=== PATIENT | female | born 1985 | race Caucasian/White ===

== ENCOUNTER 2017-12-01 12:32 | Day surgery (SDC) | payer OTHER ==
[2017-12-01 13:03] VITALS: BP 136/85; TEMP 98.6; BMI 33.3
[2017-12-01 13:45] LABS: #Basophils 0.1 thou/uL (0.0-0.2); #Eosinphils 0.1 thou/uL (0.0-0.7); #Lymphocytes 2.4 thou/uL (1.20-3.40); #Monocytes 0.6 thou/uL (0.11-0.59); #Neutrophils 6.9 thou/uL (1.40-6.50); %Basophils 1.2 % (0.0-1.0); %Lymphocytes 23.5 % (21.0-51.0); %Neutrophils 68.3 % (42.0-75.0); Hemoglobin 13.4 g/dL (12.0-16.0); Mean Corpuscular HGB CONC 35.4 g/dL (32.0-36.0); Mean Corpuscular Hemoglobin 31.6 pg (27.0-31.0); Mean Corpuscular Volume 89.2 fL (78.0-98.0); Mean Platelet Volume 7.4 fL (7.4-10.4); Platelet Count 133 thou/uL (130-400); RBC Distribution Width 12.4 % (11.5-14.5); Red Blood Cell (RBC) Count 4.26 mill/uL (4.20-5.40)
[2017-12-01 14:10] LABS: ALT (SGPT) 16 U/L (8-55); AST (SGOT) 20 U/L (5-34); Albumin 3.5 g/dL (3.5-5.0); Alkaline Phosphatase 253 U/L (40-150); Anion Gap 14 mmol/L (10-20); BUN (Urea Nitrogen) 8 mg/dL (7.0-18.7); Bilirubin, Total 0.5 mg/dL (0.2-1.2); Calc. Creatinine Clearance 178 mL/min (70-130); Carbon Dioxide 21 mmol/L (22-29); Chloride 106 mmol/L (98-107); Estimated GFR-MDRD Greater than 90; Globulin 2.6 g/dL (2.4-3.5); Glucose 80 mg/dL (70-105); Potassium 3.8 mmol/L (3.5-5.1); Protein, Total 6.1 g/dL (6.0-8.3); Sodium 137 mmol/L (136-145)
== END 2017-12-01 16:00 | disposition home or self-care (01) ==
LOC: L&D/OP 12:32
PROVIDERS: ATTEND Student in an Organized Health Care Education/Training Program
DX: O99.89 Other specified diseases and conditions complicating pregnancy, childbirth and the puerperium (principal); R42 Dizziness and giddiness
CPT/HCPCS: 36415; 80053; 82570; 84156; 85025; 99283

== ENCOUNTER 2018-01-03 16:27 | Inpatient (IN) | payer OTHER ==
[2018-01-03 16:53] VITALS: BMI 35.6
--- NOTE | 2018-01-03 17:09 | PDOC.LDHP ---
Labor and Delivery H&P Chief complaint: loss of fluid HPI: Patient of Dr Henry Location: Triage CC: LOF x [phone] this am In brief, this is a 32 yo Sab1 at 39 weeks 4 days here for LOF, but no CTX. No VB, no HAs, good FM. No recent trauama. HX MVP with PVCs requiring pacemaker years ago, but is stable now, and the device was removed years ago. Review of Systems: as per HPI Current gestational age (weeks): 39 (4 days) Dating criteria: last menstrual period Grav: 2 Para: 0 OB History Details: Sab1 Current complications: none Abnormal US findings: No Current medications: pre- vitamins Previous surgical history: other (Childhood hernia, pacemaker during teen years) Allergies/Adverse Reactions: Allergies Allergy/AdvReac Type Severity Reaction Status Date / Time No Known Allergies Allergy Verified 01/03/18 16:50 Social history: none - Physical Exam Vital signs reviewed and normal: yes (135/89 98.8 97% 113) General: NAD Heart: RRR Lungs: CTAB Abdomen: gravid (S=D EFW around 6-7#) Extremeties: no edema FHT: category 1 [place] contractions every: 2 contractions noted in 15 minutes - Assessment Term patient, with suspected ROM - Plan Plan: observation in L&D (I will perform SSE and upfdate record once done. also to be collected. If evidence of ROM, I will notify her provider for admit. Check GBS status)
--- NOTE | 2018-01-03 17:30 | PDOC.EVN ---
Event Note - Event Note Event Note: Sterile Spec Exam: Clear fluid noted at posterior fourchette of vagina. Pooling out of vagina after exam. DX: PROM. Cervix seen...visually 1cm (which is what she was in office last check by her report). PLAN: I discussed PROM with her and her with Nataly in room. I discussed cytotec, pitocin as options. She would like to see if contractions start naturally before using meds. I discussed ACOG PROM management and since GBS negative, may observe for a SET/DETERMINED amount of time, if her OBGYN provider agrees. She has opted to await labor for 6 hours if possible. Info relayed to Dr Henry.
[2018-01-03] MEDS ORDERED: Ondansetron HCl/PF 4 MG/2 ML Vial IVP PRN (17:31)
[2018-01-03] MEDS ORDERED: Lidocaine 1% (PF) 30 ML VIAL SC PRN (17:31)
[2018-01-03] MEDS ORDERED: Promethazine HCl 25 MG/ML VIAL IM PRN (17:31)
[2018-01-03] MEDS ORDERED: HYDROcodone/Acetaminophen 5/325 mg Tablet PO PRN ×2 (17:31)
[2018-01-03] MEDS ORDERED: Ibuprofen 800 MG TAB PO PRN (17:31)
[2018-01-03] MEDS: Lactated Ringer's 1,000 ML IV SCH ×2 (17:45→19:50)
[2018-01-03 17:50] LABS: Hemoglobin 13.1 g/dL (12.0-16.0); Mean Corpuscular HGB CONC 35.7 g/dL (32.0-36.0); Mean Corpuscular Hemoglobin 31.5 pg (27.0-31.0); Mean Corpuscular Volume 88.3 fL (78.0-98.0); Mean Platelet Volume 7.8 fL (7.4-10.4); Platelet Count 138 thou/uL (130-400); RBC Distribution Width 12.2 % (11.5-14.5); Red Blood Cell (RBC) Count 4.15 mill/uL (4.20-5.40); White Blood Cell (WBC) Count 9.9 thou/uL (4.8-10.8)
[2018-01-03 17:50] LABS: Amnisure Test RUPTURE DETECTED (No Rupture)
[2018-01-03 17:51] LABS: Amnisure Internal Control QC ACCEPTABLE (ACCEPTABLE)
[2018-01-03 18:31] LABS: HBSAg Index 0.15 S/CO (0-0.99); HIV (1/2) Antibody/Antigen Non-Reactive (NonReactive); HIV 1/2 INDEX 0.11 S/CO (<1.00); Hep B Surf Ag Non-Reactive S/CO (NonReactive); Syphilis Antibody Nonreactive (Nonreactive); Syphilis Antibody Index 0.03 S/CO (<1.00 Non-Reactive)
[2018-01-03 22:06] LABS: ALT (SGPT) 16 U/L (8-55); AST (SGOT) 21 U/L (5-34); Albumin 3.4 g/dL (3.5-5.0); Alkaline Phosphatase 357 U/L (40-150); Anion Gap 14 mmol/L (10-20); BUN (Urea Nitrogen) 10 mg/dL (7.0-18.7); Bilirubin, Total 0.5 mg/dL (0.2-1.2); Calc. Creatinine Clearance 184 mL/min (70-130); Calcium 9.3 mg/dL (7.8-10.44); Carbon Dioxide 20 mmol/L (22-29); Chloride 107 mmol/L (98-107); Estimated GFR-MDRD Greater than 90; Globulin 2.6 g/dL (2.4-3.5); Glucose 80 mg/dL (70-105); Potassium 3.8 mmol/L (3.5-5.1); Sodium 137 mmol/L (136-145)
[2018-01-03] MEDS: Misoprostol 100 MCG TAB VAG SCH (23:25)
[2018-01-04] MEDS: Misoprostol 100 MCG TAB VAG SCH ×3 (02:25→09:37)
[2018-01-04] MEDS: Lactated Ringer's 1,000 ML IV SCH ×3 (04:05→17:40)
--- NOTE | 2018-01-04 07:33 | PDOC.LDPN ---
Labor & Delivery Progress Note - Subjective Subjective: painful contractions - Objective Vital signs reviewed and normal: yes General: NAD Uterine fundus: non tender Dilation: 3 Effacement: 75% Station: -2 (by RN) FHT: category 1 [place] contractions every: 2-3min Plan: pitocin for augmentation -: No e/o chorio, limit SVE due to ROM >24hr, neg GBS. FHT reassuring. pt considering epidural. Start pitocin.
[2018-01-04] MEDS ORDERED: DISCONTINUE ALL PREVIOUS NARCOTICS FS SCH (07:45)
[2018-01-04] MEDS ORDERED: NS w/ Oxytocin 10 units 500 ML IV SCH (07:45)
[2018-01-04] MEDS: Bupivacaine 0.5% 20 ML, fentaNYL Citrate/PF 400 MCG in Sodium Chloride 0.9% 72 ML EPIDURAL SCH ×3 (09:35→22:10)
[2018-01-04] MEDS ORDERED: Ondansetron HCl/PF 4 MG/2 ML Vial IVP PRN (09:38)
[2018-01-04] MEDS ORDERED: diphenhydrAMINE 50 MG/ML VIAL IVP PRN (09:38)
[2018-01-04] MEDS ORDERED: ePHEDrine/0.9% NaCl/PF SYRINGE 50 mg/10 ml SLOW IVP PRN (09:38)
[2018-01-04] MEDS ORDERED: Promethazine HCl 25 MG/ML VIAL IM PRN (09:38)
[2018-01-04] MEDS ORDERED: Eucerin (Mineral Oil/Petrolatum,White) 30 gm Jar TOP PRN (09:38)
[2018-01-04] MEDS ORDERED: Naloxone HCl 0.4 mg/ml Vial IVP PRN ×2 (09:38)
[2018-01-04] MEDS ORDERED: Lactated Ringer's 500 ML IV PRN (09:38)
[2018-01-04] MEDS ORDERED: Acetaminophen 325 MG TAB PO PRN (09:38)
[2018-01-04] MEDS ORDERED: Communication Order-Pharmacy FS SCH (09:45)
[2018-01-04] MEDS ORDERED: fentaNYL Citrate/PF 400 MCG, Bupivacaine 0.5% 20 ML in Sodium Chloride 0.9% 72 ML EPIDURAL SCH (09:45)
[2018-01-04] MEDS: NS / Oxytocin 40 units/1000ml 1,000 ML IV PRN (23:50)
[2018-01-04] MEDS ORDERED: Misoprostol 200 MCG TAB ONE (23:57)
--- NOTE | 2018-01-05 00:08 | PDOC.OPDEL ---
OB Operative/Delivery Note Delivery Dr/Surgeon: Carl Assist: n/a Pre-Delivery Diagnosis: ruptured membrane Procedure/Post Delivery Dx: spontaneous vaginal delivery Weeks gestation: 39 Anesthesia: epidural - Findings A Sex: male - 1 min: 8 - 5 min: 9 - Additional Findings/Plan Placenta delivered: spontaneous Repaired Obstetrical Laceration: none Estimated blood loss: normal, qbl pending Compilations/Other Findings: body cord x 1, slight uterine atony improved with pitocin and fundal massage, cytotec 800mcg given pr prophylactically Post delivery plan: routine recovery
[2018-01-05] MEDS: NS / Oxytocin 40 units/1000ml 1,000 ML IV PRN (01:14)
[2018-01-05] MEDS ORDERED: Bisacodyl 10 MG SUPP PR PRN (03:10)
[2018-01-05] MEDS ORDERED: Ondansetron HCl/PF 4 MG/2 ML Vial IVP PRN (03:10)
[2018-01-05] MEDS ORDERED: Milk Of Magnesia 30 ML UDCUP PO PRN (03:10)
[2018-01-05] MEDS ORDERED: diphenhydrAMINE 25 MG CAP PO PRN (03:10)
[2018-01-05] MEDS ORDERED: Preparation H Ointment 28 GM TUBE PR PRN (03:10)
[2018-01-05] MEDS ORDERED: Lanolin Ointment 7 GM TUBE TOP PRN (03:10)
[2018-01-05] MEDS ORDERED: HYDROcodone/Acetaminophen 5/325 mg Tablet PO PRN ×2 (03:10)
[2018-01-05] MEDS ORDERED: NS / Oxytocin 40 units/1000ml 1,000 ML IV SCH (03:10)
[2018-01-05] MEDS ORDERED: Benzocaine/Menthol 20-0.5% 60 ML CAN TOP PRN (03:10)
[2018-01-05] MEDS ORDERED: Adacel (T-DAP) 0.5 ML VIAL IM ONE (04:00)
[2018-01-05] MEDS: Ibuprofen 800 MG TAB PO SCH ×3 (05:27→21:04)
--- NOTE | 2018-01-05 08:28 | PDOC.PP ---
Post Progress Note Post Day #: 1 PO intake tolerated: yes Flatus: yes Ambulation: yes Vital Signs (12 hours) Temp Pulse Resp BP BP 01/05/18 05:15 97.9 F 96 18 128/80 01/05/18 04:10 98.0 F 96 18 133/86 01/05/18 03:00 98.2 F 93 20 126/84 Weight Weight 201 lb - Physical Examination General: NAD Respiratory: non-labored breathing Abdominal: no distention, appropriately TTP Neurological: no gross focal deficits Psychiatric: normal affect Result Diagrams: 01/03/18 17:41 01/03/18 17:31 Additional Labs: Post Labs Blood Type O POSITIVE 01/03/18 17:41 Hep Bs Antigen Non-Reactive S/CO (NonReactive) 01/03/18 17:41 - Assessment/Plan PPD1 s/p TSVD VSSAF Doing well, DTV, lochia appropriate Rh pos Rimm Cont PP care, home tomorrow
[2018-01-05] MEDS: Ferrous Sulfate 325 MG TAB PO SCH ×2 (09:51→17:01)
[2018-01-05] MEDS: Docusate Calcium (SURFAK) 240 MG CAP PO SCH ×2 (09:53→21:04)
[2018-01-05] MEDS: Prenatal Vitamin 1 TAB PO SCH (09:53)
[2018-01-05] MEDS ORDERED: Bupivacaine 0.25% HCL 30 ML VIAL ONE (11:18)
[2018-01-06] MEDS: Ibuprofen 800 MG TAB PO SCH ×2 (05:25→14:17)
--- NOTE | 2018-01-06 06:27 | PDOC.PP ---
Post Progress Note Post Day #: PPD#2 Subjective: No c/o. Ready for home. PO intake tolerated: yes Ambulation: yes Vital Signs (12 hours) Temp Pulse Resp BP 01/05/18 20:00 98.6 F 100 16 130/83 Weight Weight 91.172 kg - Physical Examination General: NAD Psychiatric: A&Ox3 (Doing well s/p . Precautions. RTC [address] Henry.), normal affect Result Diagrams: 01/03/18 17:41 01/03/18 17:31 Additional Labs: Post Labs Blood Type O POSITIVE 01/03/18 17:41 Hep Bs Antigen Non-Reactive S/CO (NonReactive) 01/03/18 17:41
[2018-01-06 08:12] VITALS: BP 127/85; TEMP 97.9
[2018-01-06] MEDS: Ferrous Sulfate 325 MG TAB PO SCH (08:16)
[2018-01-06] MEDS: Docusate Calcium (SURFAK) 240 MG CAP PO SCH (09:45)
[2018-01-06] MEDS: Prenatal Vitamin 1 TAB PO SCH (09:45)
== END 2018-01-06 16:05 | disposition home or self-care (01) | DRG 775 ==
LOC: L&D/OP 16:27 → L&D 20:52 → 3SW 01-05 02:59
PROVIDERS: ADMIT Student in an Organized Health Care Education/Training Program; ATTEND Student in an Organized Health Care Education/Training Program
PROC: 10E0XZZ Delivery of Products of Conception, External Approach (ICD-10-PCS; principal; 2018-01-04)
DX: O69.82X0 Labor and delivery complicated by other cord entanglement, without compression, not applicable or unspecified (principal); Z37.0 Single live birth; Z3A.39 39 weeks gestation of pregnancy
CPT/HCPCS: 36415; 51702; 80053; 84112; 84156; 85027; 86780; 86850; 86900; 86901; 87340; 87389; 99285; J2001; J3010; J3490; J7050; S0020

== ENCOUNTER 2023-11-29 20:44 | Emergency (ER) | payer BC, SELFPAY ==
[2023-11-29] MEDS ORDERED: Lorazepam 1 MG TAB ONE (22:14)
== END 2023-11-29 23:42 | disposition home or self-care (01) ==
LOC: ERS 20:44
DX: F43.0 Acute stress reaction (principal); F41.9 Anxiety disorder, unspecified; I10 Essential (primary) hypertension; R29.700 NIHSS score 0; Z95.0 Presence of cardiac pacemaker
CPT/HCPCS: 93005